=== PATIENT | female | born 1955 | race African-American/Black ===

== ENCOUNTER 2022-03-19 11:10 | Inpatient (IN) | payer OTHER ==
[~2022-03-19] VITALS: Ht 172.7 cm; Wt 36.8 kg
[~2022-03-19 11:10] MED LIST: ATOR-2 MT; CHOL400D7 PO; DORZ10DR12 RIGHTEYE; FURO-151 MT; GABA-532 MT; INSU100I28 SQ; ISOS30TA91 PO; NITR0.4T49 SL; OMEP40CA20 MT; POTA-205 MT; RANO10003 MT; XALAO RIGHTEYE
[2022-03-19] MEDS ORDERED: ATROPINE SULFATE 1MG/ML VIAL IV ONE (11:45)
[2022-03-19 11:57] LABS: BASOPHILS % 0.7 % (0.0-2.0); EOSINOPHILS % 1.3 % (0.0-5.0); HEMATOCRIT. 32.1 % (36.0-48.0); HEMOGLOBIN. 10.9 g/dL (12.0-16.0); LYMPHOCYTES % 33.5 % (20.0-50.0); MEAN CORPUSCULAR HEMOGLOBIN 32.3 pg (28.0-32.0); MEAN CORPUSCULAR VOLUME 95.4 fL (81.0-99.0); MEAN PLATELET VOLUME 9.7 fl (7.4-10.4); MONOCYTES % 8.6 % (2.0-8.0); NEUTROPHILS % 55.9 % (40.0-76.0); PLATELET 165 x1000/uL (130-400); RED BLOOD CELL COUNT 3.37 mill/uL (4.2-5.4); RED CELL DISTRIBUTION WIDTH 14.7 % (11.6-14.6)
[2022-03-19 11:58] LABS: BG BASE EXCESS -1.6 mmol/L (-2.0-2.0); BG CARBOXYHEMOGLOBIN 0.3 % (0.5-1.5); BG DEOXYHEMOGLOBIN 3.8 % (0.0-5.0); BG FRACTION INSPIRED OXYGEN 21; BG HCO3 ACT 23.2 mmol/L (22.0-26.0); BG METHEMOGLOBIN 0.3 % (0.0-1.5); BG OXYGEN SATURATION 96.2 % (92.0-98.5); BG OXYHEMOGLOBIN 95.6 % (94.0-97.0); BG PCO2 39.8 mmHg (35.0-45.0); BG PH 7.384 (7.350-7.450); BG PO2 90.8 mmHg (75.0-100.0); BG SAMPLE SITE LEFT BRACHIAL; BG TOTAL HEMOGLOBIN 11.5 g/dL (12.0-18.0); BG VENT MODE ROOM AIR
[2022-03-19 12:10] LABS: CHLORIDE 106 mEq/L (98-107)
[2022-03-19 12:27] LABS: ETHANOL BLOOD < 10 mg/dL; T4 FREE 1.14 ng/dL (0.76-1.46)
[2022-03-19] MEDS ORDERED: FUROSEMIDE 40MG/4ML VIAL IVP NR (12:45)
[2022-03-19] MEDS: AMLODIPINE 10MG TABLET PO SCH (15:00)
[2022-03-19] MEDS ORDERED: ACETAMINOPHEN 325MG TABLET PO PRN (15:00)
[2022-03-19] MEDS ORDERED: ONDANSETRON HCL 4MG/2ML INJ IV PRN (15:00)
[2022-03-19 15:40] VITALS: BP 136/57
[2022-03-19 15:44] VITALS: BP 136/57
[2022-03-19] MEDS ORDERED: DEXTROSE 50% WATER 50ML SYRINGE IV PRN (16:15)
[2022-03-19] MEDS: BLOOD SUGAR DIAGNOSTIC STRIP TEST SCH ×2 (16:36→22:05)
[2022-03-19] MEDS: INSULIN LISPRO 100 UNITS/ML SUBCUT SCH ×2 (16:36→22:13)
[2022-03-19 17:23] LABS: T4 FREE 1.14 ng/dL (0.76-1.46)
[2022-03-19 18:00] VITALS: BP 116/58
[2022-03-19 20:01] VITALS: BP 149/69
[2022-03-19 22:01] VITALS: BP 164/84
[2022-03-19 22:55] VITALS: BP 125/51
[2022-03-20] VITALS (8 sets, daily range): BP systolic 128–162; BP diastolic 53–75
[2022-03-20] MEDS ORDERED: RANO10003 MT (05:53)
[2022-03-20] MEDS ORDERED: DOCU100T PO (05:53)
[2022-03-20] MEDS ORDERED: VITAMIN D3 PO (05:53)
[2022-03-20] MEDS: BLOOD SUGAR DIAGNOSTIC STRIP TEST SCH ×2 (06:52→11:50)
[2022-03-20] MEDS ORDERED: CEPH500C2 PO (06:56)
[2022-03-20 08:30] LABS: BASOPHILS % 0.8 % (0.0-2.0); EOSINOPHILS % 1.9 % (0.0-5.0); HEMATOCRIT. 32.5 % (36.0-48.0); HEMOGLOBIN. 10.8 g/dL (12.0-16.0); LYMPHOCYTES % 34.3 % (20.0-50.0); MEAN CORPUSCULAR HEMOGLOBIN 31.2 pg (28.0-32.0); MEAN PLATELET VOLUME 10.3 fl (7.4-10.4); PLATELET 166 x1000/uL (130-400); RED BLOOD CELL COUNT 3.46 mill/uL (4.2-5.4); RED CELL DISTRIBUTION WIDTH 14.7 % (11.6-14.6)
[2022-03-20] MEDS: INSULIN LISPRO 100 UNITS/ML SUBCUT SCH ×2 (08:39→13:20)
[2022-03-20] MEDS: AMLODIPINE 10MG TABLET PO SCH (08:39)
[2022-03-20 08:55] LABS: CHLORIDE 104 mEq/L (98-107)
[2022-03-20] MEDS ORDERED: LACTULOSE 20G/30ML UDC PO NR (09:30)
[2022-03-20] MEDS ORDERED: CLOPIDOGREL 75MG TABLET PO ONE (10:30)
[2022-03-20] MEDS ORDERED: ASPIRIN 325MG EC TABLET PO ONE (10:30)
[2022-03-20] MEDS ORDERED: MEDICATION NOT ON FORMULARY EA (Docusate Sodium 100 MG) PO SCH (11:15)
[2022-03-20] MEDS ORDERED: RANOLAZINE 500 MG TAB.SR.12H PO SCH (11:36)
[2022-03-20] MEDS ORDERED: POTASSIUM CHLORIDE 20MEQ TABLET SR PO SCH (11:40)
[2022-03-20] MEDS ORDERED: FUROSEMIDE 40MG TABLET PO SCH (11:40)
[2022-03-20] MEDS ORDERED: ATORVASTATIN CALCIUM 40MG TABLET PO SCH (11:42)
[2022-03-20] MEDS ORDERED: CHOLECALCIFEROL (D3) 1000 UNIT TABLET PO SCH (11:50)
[2022-03-20] MEDS ORDERED: DOCUSATE SODIUM 100MG CAPSULE PO PRN (12:00)
[2022-03-20] MEDS ORDERED: MEDICATION NOT ON FORMULARY EA (Cephalexin Monohydrate (Cephalexin) 500 MG) PO SCH (13:00)
[2022-03-20] MEDS ORDERED: CEPHALEXIN 250MG CAPSULE PO SCH (13:00)
[2022-03-20] MEDS ORDERED: SORBITOL 70% SOLN 30ML PO NR (15:00)
[2022-03-20] MEDS ORDERED: GABAPENTIN 300MG CAPSULE PO SCH (17:00)
[2022-03-20] MEDS ORDERED: DORZOLAM/TIMOLOL 2.23/0.68% OPHTH DROPS 10ML RIGHTEYE SCH (17:00)
[2022-03-20] MEDS ORDERED: MEDICATION NOT ON FORMULARY EA (Ranolazine (Ranexa) 1 TAB) MT SCH (17:00)
[2022-03-20] MEDS ORDERED: LATANOPROST 0.005% OPHTH DROPS 2.5ML RIGHTEYE SCH (21:00)
[2022-03-21] MEDS ORDERED: ASPIRIN 81MG EC TABLET PO SCH (09:00)
[2022-03-21] MEDS ORDERED: VITAMIN D3 25 MCG PO SCH (09:00)
[2022-03-21] MEDS ORDERED: MEDICATION NOT ON FORMULARY EA (Atorvastatin Calcium 1 TAB) MT SCH (09:00)
[2022-03-21] MEDS ORDERED: CLOPIDOGREL 75MG TABLET PO SCH (09:00)
== END 2022-03-20 17:20 | disposition home or self-care (01) | DRG 309 ==
LOC: EDBEDREQ 11:29 → EDBEDREQTM 11:29 → ER 11:56 → 3WST 13:12 → EDBEDREQTM 13:14 → EDBEDREQ 13:14 → EDBEDREQSVC 13:14 → ENRESERV 14:42
PROVIDERS: ADMIT Internal Medicine Pulmonary Disease; ATTEND Internal Medicine Pulmonary Disease
DX: R00.1 Bradycardia, unspecified (principal); E44.0 Moderate protein-calorie malnutrition; Z68.1 Body mass index [BMI] 19.9 or less, adult; R11.2 Nausea with vomiting, unspecified; I25.10 Atherosclerotic heart disease of native coronary artery without angina pectoris; E11.9 Type 2 diabetes mellitus without complications; E78.00 Pure hypercholesterolemia, unspecified; S80.12XA Contusion of left lower leg, initial encounter; K21.9 Gastro-esophageal reflux disease without esophagitis; D64.9 Anemia, unspecified; I10 Essential (primary) hypertension; Z82.49 Family history of ischemic heart disease and other diseases of the circulatory system; Z88.8 Allergy status to other drugs, medicaments and biological substances; Z95.1 Presence of aortocoronary bypass graft; I25.2 Old myocardial infarction; Z79.899 Other long term (current) drug therapy; X58.XXXA Exposure to other specified factors, initial encounter; Y93.89 Activity, other specified; Y92.89 Other specified places as the place of occurrence of the external cause; Y99.8 Other external cause status
CPT/HCPCS: 36415; 36600; 71045; 80048; 80053; 80061; 80320; 82375; 82805; 82962; 83735; 83880; 84439; 84443; 84480; 84484; 85025; 93005; 93306; 93970; 99291; J0461; J1815; J1940; G0480